=== PATIENT | male | born 1980 | race Caucasian/White ===

== ENCOUNTER 2016-12-10 14:37 | Emergency (ER) | payer OTHER ==
[~2016-12-10] VITALS: Ht 170.2 cm; Wt 92.1 kg
[~2016-12-10 14:37] MED LIST: ATOR-22 PO; CHOL200010 PO; FLXHP PO; HYDR-3983 PO; HYDR-5688 PO; IBUP-1277 PO; PRLSR20 PO; PRT/20 PO
[2016-12-10 14:49] VITALS: TEMP 36.3; Ht 170.2 cm; Wt 92.1 kg
[2016-12-10] MEDS ORDERED: CYCL10TA6 PO (15:26)
[2016-12-10] MEDS ORDERED: PROCHLORPERAZINE 5 MG/ML 2 ML VIAL IV STA (15:33)
[2016-12-10] MEDS ORDERED: SODIUM CHLORIDE 0.9% 1000ML 2,000 ML IV STA (15:33)
[2016-12-10] MEDS ORDERED: KETOROLAC TROMETHAMINE 30 MG/ML VIAL IV STA (15:33)
[2016-12-10] MEDS ORDERED: DiphenhydrAMINE HCL 50 MG/ML VIAL IV STA (15:33)
[2016-12-10] MEDS ORDERED: DEXAMETHASONE SOD INJ 10 MG/ML VIAL IV ONE (15:45)
[2016-12-10 16:06] VITALS: O2SAT 94
[2016-12-10 16:21] LABS: HEMATOCRIT 45.8 % (42-52); MEAN CORPUSCULAR HEMOGLOBIN 33.1 pg (25-34); MEAN CORPUSCULAR HGB CONC 35.2 g/dl (32-36); MEAN PLATELET VOLUME 10.6 fL (7.4-10.4); PLATELET COUNT 357 K/uL (130-400); RED BLOOD COUNT 4.87 M/uL (4.7-6.1); WHITE BLOOD COUNT 11.48 K/uL (4.8-10.8)
[2016-12-10 16:28] LABS: BUN/CREATININE RATIO 8.1 (10-20); CALCIUM 9.5 mg/dl (8.5-10.1); CREATININE 0.77 mg/dl (0.60-1.40); POTASSIUM 3.8 mmol/L (3.5-5.1)
[2016-12-10 16:31] LABS: ALB/GLOB RATIO 0.8 (0.9-2)
[2016-12-10] MEDS ORDERED: ONDANSETRON INJ 2 MG/ML 2 ML VIAL IV STA (17:18)
[2016-12-10] MEDS ORDERED: FENTANYL CITRATE INJ 50 MCG/1 ML 2 ML VIAL IV STA (17:18)
--- NOTE | 2016-12-10 17:30 | EMERGENCY ROOM VISIT NOTE ---
ED Visit Note First contact with patient: 14:59 CHIEF COMPLAINT: Migraine headache with nausea and vomiting since early this morning HISTORY OF PRESENT ILLNESS: Patient is a 36-year-old white male who presents to the emergency department accompanied by his girlfriend for evaluation of a headache with associated nausea and vomiting. He states his symptoms started this morning when he woke up. He has a history of a headache disorder. He states that it is usually brought on by sleep deprivation and a poor diet. He admits that he did not eat very well yesterday, only a piece of pizza in the evening, drank 2 beers, then stayed up all night with his brother who was intoxicated. Patient woke up early in the morning with a right-sided headache. It was initially mild and he rated it a 7/10. He tried taking ibuprofen, but shortly afterwards vomited. He states that he became nauseous, had further vomiting and the vomiting then caused the headache to increase. He now notes a throbbing right-sided occipital/retro-orbital/temporal headache that he rates a 9/10 with associated photo and phonophobia. He states this is typical of his usual headache phenomenon. He denies any abdominal pain or diarrhea. He has not been ill recently with any cold or upper respiratory symptoms, fever or chills. No difficulty with balance, speech or coordination. No numbness, tingling or weakness into the extremities. No trauma to the head and no neck pain. This is not the worst headache of the life and is similar to previous headaches. REVIEW OF SYSTEMS: Review of systems as per HPI. All other systems reviewed were negative. 10 systems reviewed. PMH: Electronic medical records are reviewed and summarized as above/below. See Problem List. SOCIAL HISTORY: Patient lives at home with his girlfriend. Smokes one pack of cigarettes daily, drinks alcohol socially. PHYSICAL EXAM: Vital Signs: Reviewed Nurse's notes. General Appearance: Patient is well appearing, in no acute distress Eyes: Pupils equal round reactive to light extraocular muscles are intact, no proptosis, mild photophobia ENT: Oropharynx is clear, mucous membranes are moist, tympanic membranes are clear bilaterally, no sinus tenderness. Gross dental decay noted. Neck: Supple, no cervical lymphadenopathy, no meningismus Heart: Regular rate and rhythm, S1 and S2 Lungs: Clear to auscultation bilaterally, no wheezes Rales or rhonchi, no increased work of breathing Abdomen: Soft nontender nondistended. Normal active bowel sounds. No rebound. No guarding. Back: No midline tenderness to palpation. : No CVA tenderness to palpation. Skin: Warm, no diaphoresis, no rashes. Extremities: No cyanosis, clubbing, or edema Neurologic: Patient is awake alert, and oriented x 3. Cranial nerves 2-12 are grossly intact. Motor 5 out of 5 strength bilateral upper extremities and lower extremities. No gross sensory deficits. Reflexes are 2+ throughout. EMERGENCY DEPARTMENT COURSE: The patient was seen and assessed as above. His old records were reviewed. IV lock was initiated he was hydrated with a 2 L bolus of normal saline solution. He was medicated with Toradol 30 mg, Compazine 10 mg, Decadron 10 mg and Benadryl 25 mg IV for his migraine and vomiting. CBC, CMP, lipase and urine dip were performed. Laboratory studies revealed a slightly elevated white count of 11,400. Electrolytes are without significant abnormality. Renal functions are normal. He has slight elevation of his transaminases, but bilirubin and lipase are normal. Upon review of old records, liver functions are always slightly elevated and labs today appear chronic and stable for him. Urine dip was unremarkable. The patient was reassessed, and was sleeping soundly and it needed to be shaken by his girlfriend to wake Up. Nonetheless, he continued to report a headache that he rated a 7/10. He was given oral fluids, Zofran 4 mg IV and fentanyl 50 g IV. At discharge, he rated his pain a 1/10. He was given a Zofran home pack. His presentation seems consistent with a migraine with associated vomiting. His abdominal exam is benign. His neurologic exam is benign. It was not felt that any further workup for neuro imaging was indicated. He is discharged to home in good condition with his friend driving. Differential includes: acute intracranial bleed, meningitis, encephalitis, mass or mass effect, sinusitis, infection, migraine, tumor, headache, temporal arteritis and carbon monoxide exposure. Problem List Medical Problems: (1) Abdominal pain Status: Resolved (2) ASTHMA, UNSPECIFIED Status: Chronic (3) Blood per rectum Status: Resolved (4) Blood per rectum Status: Resolved (5) Bronchitis Status: Resolved (6) Colitis Status: Resolved (7) Colitis Status: Resolved (8) Cough Status: Resolved (9) Dental caries Status: Resolved (10) Dentalgia Status: Resolved (11) Dentalgia Status: Resolved (12) Dentalgia Status: Chronic (13) Fever Status: Resolved (14) GERD (gastroesophageal reflux disease) Status: Chronic (15) Knee pain Status: Resolved (16) Knee pain Status: Resolved (17) Knee pain Status: Resolved (18) Left knee pain Status: Resolved (19) Left sided chest pain Status: Resolved (20) Pain, dental Status: Resolved (21) PNA (pneumonia) Status: Resolved (22) Pneumonia Status: Resolved (23) Sinus headache Status: Resolved (24) Sinusitis Status: Resolved (25) Stomach problems Status: Chronic (26) TOBACCO USE DISORDER Status: Chronic (27) Ulcer Status: Resolved Surgical Problems: (1) History of herniorrhaphy Status: Resolved (2) History of reconstruction of anterior cruciate ligament tear Status: Resolved Current/Historical Medications Scheduled Atorvastatin (Lipitor), 20 MG PO DAILY Cholecalciferol (Vitamin D), 1 CAP PO DAILY Omeprazole (Prilosec), 20 MG PO QAM Pantoprazole (Protonix), 20 MG PO QAM Scheduled PRN Cyclobenzaprine Hcl (Flexeril), 10 MG PO TID PRN for Muscle Spasms Hydrocodone/Acetaminophen 5MG/325MG ([place]uthrie 5MG/325MG), 1 TABLET PO Q6 PRN for Pain Ibuprofen (Advil), 400 MG PO BID PRN for Pain Allergies Coded Allergies: Sumatriptan (Verified Allergy, Unknown, HEAT FLUSHES THROUGH BODY, SHAKES , respiratory problems, 07/30/16) Acetaminophen (Unverified Adverse Reaction, Unknown, VOMITING, 07/30/16) Codeine (Unverified Adverse Reaction, Unknown, VOMITING, 07/30/16) Oxycodone (Verified Adverse Reaction, Unknown, VOMITING X 1 DAY, 07/30/16) Vital Signs Date Time Temp Pulse Resp B/P Pulse Ox O2 Delivery O2 Flow Rate FiO2 12/10/16 18:00 93 16 140/90 100 12/10/16 16:57 92 18 141/76 95 12/10/16 16:06 94 Room Air 12/10/16 14:49 36.3 85 18 140/97 94 Room Air Laboratory Results 12/10/16 15:40 12/10/16 15:40 Test 12/10/16 15:40 Red Blood Count 4.87 M/uL (4.7-6.1) Mean Corpuscular Volume 94.0 fL (80-100) Mean Corpuscular Hemoglobin 33.1 pg (25-34) Mean Corpuscular Hemoglobin Concent 35.2 g/dl (32-36) RDW Standard Deviation 45.7 fL (36.4-46.3) RDW Coefficient of Variation 13.2 % (11.5-14.5) Mean Platelet Volume 10.6 fL (7.4-10.4) Anion Gap 8.0 mmol/L (3-11) Est Creatinine Clear Calc Drug Dose 143.5 ml/min Estimated GFR () 135.3 Estimated GFR (Non- 116.7 BUN/Creatinine Ratio 8.1 (10-20) Calcium Level 9.5 mg/dl (8.5-10.1) Total Bilirubin 0.7 mg/dl (0.2-1) Aspartate Amino Transf (AST/SGOT) 56 U/L (15-37) Alanine Aminotransferase (ALT/SGPT) 100 U/L (12-78) Alkaline Phosphatase 123 U/L (45-117) Total Protein 8.3 gm/dl (6.4-8.2) Albumin 3.8 gm/dl (3.4-5.0) Globulin 4.5 gm/dl (2.5-4.0) Albumin/Globulin Ratio 0.8 (0.9-2) Lipase 286 U/L (73-393) Medications Administered Medications (Trade) Dose Ordered Sig/[place] Route Start Time Stop Time Status Last Admin Dose Admin Sodium Chloride (Nss 1000ml) 2,000 ml @ 999 mls/hr Q2H1M STAT IV 12/10/16 15:33 12/10/16 17:33 DC 12/10/16 15:33 999 MLS/HR Ketorolac Tromethamine (Toradol Inj) 30 mg NOW STAT IV 12/10/16 15:33 12/10/16 15:36 DC 12/10/16 15:54 30 MG Prochlorperazine Edisylate (Compazine Inj) 10 mg NOW STAT IV 12/10/16 15:33 12/10/16 15:36 DC 12/10/16 15:54 10 MG Dexamethasone Sodium Phosphate (Decadron Inj) 10 mg NOW ONCE IV 12/10/16 15:45 12/10/16 15:46 DC 12/10/16 15:54 10 MG Diphenhydramine HCl (Benadryl Inj) 25 mg NOW STAT IV 12/10/16 15:33 12/10/16 15:36 DC 12/10/16 15:54 25 MG Fentanyl Citrate (Fentanyl Inj) 50 mcg NOW STAT IV 12/10/16 17:18 12/10/16 17:19 DC 12/10/16 17:32 50 MCG Ondansetron HCl (Zofran Inj) 4 mg NOW STAT IV 12/10/16 17:18 12/10/16 17:19 DC 12/10/16 17:31 4 MG Ondansetron HCl (ZOFRAN ODT 4MG Home Pack) 1 homepack UD ONCE PO 12/10/16 17:45 12/10/16 17:46 DC 12/10/16 17:59 1 HOMEPACK Departure Information Impression Primary Impression: Headache Additional Impression: Vomiting Referrals No Doctor, Assigned (PCP) Patient Instructions My [facility] Additional Instructions DO NOT drive, drink alcohol, operate machinery, or perform dangerous activities today. You were given medications in the ER that can affect your ability to safely function or operate a vehicle. Rest today in a quiet, peaceful, dark environment and get a full 8-10 hrs of sleep tonight. Avoid loud noises, smoke/smoking, alcohol, bright lights, stress, or physical exertion today to minimize the chance the headache may return. Continue current medications. Return to the ER for passing out, worsening headache, vision problems, neck stiffness/pain, fevers, vomiting, worsening of your condition, or as needed. Follow up with your primary physician in 2-3 days for a recheck of your current condition. Problem Qualifiers
[2016-12-10] MEDS ORDERED: ONDANSETRON HOME PACK 4MG OD TAB PO ONE (17:45)
[2016-12-10 18:00] VITALS: BP 140/90; PULSE 93; O2SAT 100
== END 2016-12-10 18:02 | disposition home or self-care (01) ==
LOC: C.EDB 14:38 → C.EDC 18:02
DX: G43.909 Migraine, unspecified, not intractable, without status migrainosus (principal); R11.2 Nausea with vomiting, unspecified; F17.210 Nicotine dependence, cigarettes, uncomplicated; J45.909 Unspecified asthma, uncomplicated; K21.9 Gastro-esophageal reflux disease without esophagitis; Z87.01 Personal history of pneumonia (recurrent); F17.200 Nicotine dependence, unspecified, uncomplicated; Z79.899 Other long term (current) drug therapy